=== PATIENT | male | born 1950 | race Caucasian/White ===

== ENCOUNTER 2021-07-09 11:37 | Inpatient (IN) ==
[2021-07-09] MEDS ORDERED: Ipratropium/Albuterol Neb 3 ML IH ONE (12:10)
[2021-07-09 12:39] LABS: Basophils % 0.7 %; Eosinophils # 0.2 K/mcL (0.0-0.6); Eosinophils % 3.7 %; Hematocrit 29.1 % (37.5-50.1); Hemoglobin 9.1 g/dL (12.9-16.9); Immature Granulocytes % 0.5 % (0-4); Lymphocytes # 1.1 K/mcL (0.6-4.6); Lymphocytes % 19.5 %; Mean Corpuscular HGB Conc 31.3 g/dL (31.6-35.5); Mean Corpuscular Hemoglobin 29.7 pg (28.0-33.3); Mean Corpuscular Volume 95.1 fL (83.0-100.0); Monocytes # 0.9 K/mcL (0.0-1.3); Neutrophils # 3.5 K/mcL (1.6-8.9); Platelet Count 239 K/mcL (140-400); Red Blood Count 3.06 M/mcL (4.19-5.50); Red Cell Distribution Width 15.9 % (11.5-14.5); Segmented Neutrophils % 60.6 %; White Blood Count 5.7 K/mcL (4.3-11.1)
[2021-07-09 12:39] LABS: ABG Base Excess 3 mEq/L (-2 to 3); ABG HCO3 27 mEq/L (21-27); ABG Oxygen Saturation 95 % (95-98); ABG PCO2 41 mmHg (35-45); ABG PH 7.43 pH Units (7.32-7.45); ABG PO2 76 mmHg (85-104); ABG TCO2 28 mEq/L (20-26)
[2021-07-09 12:48] LABS: INR 1.1; Prothrombin Time 12.2 Seconds (9.4-12.1)
[2021-07-09 12:58] LABS: Calcium 8.9 mg/dL (8.6-10.3); Potassium 3.9 mEq/L (3.5-5.1); Troponin I 0.03 ng/mL (< 0.04)
[2021-07-09] MEDS ORDERED: Azithromycin 500 MG in 0.9 % Sodium Chloride 250 ML IVPB ONE (13:03)
[2021-07-09] MEDS ORDERED: Ondansetron ODT 4 MG TAB.RAPDIS SL PRN (16:55)
[2021-07-09] MEDS ORDERED: Naloxone 0.4 MG/ML INJ IVP PRN (16:55)
[2021-07-09] MEDS ORDERED: Acetaminophen 325 MG TABLET PO PRN (16:55)
[2021-07-09] MEDS ORDERED: Ipratropium/Albuterol Neb 3 ML IH PRN (16:59)
[2021-07-09] MEDS ORDERED: D5% in Water 1,000 ML IVC PRN (17:40)
[2021-07-09] MEDS ORDERED: Dextrose Gel 15 GM/37.5 ML TUBE PO PRN ×2 (17:40)
[2021-07-09] MEDS ORDERED: *HR* Dextrose 50 % in Water (Syg) 50 ML SYRINGE IVP PRN (17:40)
[2021-07-09] MEDS: cloNIDine HCL 0.1 MG TABLET PO SCH (20:53)
[2021-07-09] MEDS: hydrALAZINE 25 MG TABLET PO SCH (20:55)
[2021-07-09] MEDS: Insulin LISPRO 300 UNITS/3 ML VIAL SUBQ SCH (20:55)
[2021-07-09] MEDS: Furosemide 20 MG/2 ML VIAL IVP SCH (20:55)
[2021-07-09] MEDS: Budesonide/Formoterol 160/4.5 1 PUFF INH IH SCH (23:24)
[2021-07-10] MEDS: Insulin LISPRO 300 UNITS/3 ML VIAL SUBQ SCH ×4 (07:55→19:45)
[2021-07-10] MEDS: hydrALAZINE 25 MG TABLET PO SCH ×3 (07:55→20:14)
[2021-07-10] MEDS: cloNIDine HCL 0.1 MG TABLET PO SCH ×2 (07:56→20:14)
[2021-07-10] MEDS: Furosemide 20 MG/2 ML VIAL IVP SCH ×2 (07:58→22:28)
[2021-07-10] MEDS: Fenofibrate 54 MG TABLET PO SCH (08:09)
[2021-07-10] MEDS: Cholecalciferol (D-3) 1,000 UNIT (25MCG) TABLET PO SCH (08:09)
[2021-07-10] MEDS: Vitamin B Complex/Vit C/Vit E 1 EACH TABLET PO SCH (08:10)
[2021-07-10] MEDS: Multivit/Ca/Min/Fe/FA 1 TAB TABLET PO SCH (08:10)
[2021-07-10] MEDS: amLODIPine 5 MG TABLET PO SCH (08:11)
[2021-07-10] MEDS: allopurinoL 100 MG TABLET PO SCH (08:11)
[2021-07-10] MEDS: Azithromycin 500 MG in 0.9 % Sodium Chloride 250 ML IVPB SCH (08:13)
[2021-07-10] MEDS: cefTRIAXone 2,000 MG in 0.9 % Sodium Chloride Mini Bag 100 ML IVPB SCH (08:13)
[2021-07-10 08:28] LABS: Albumin 3.3 g/dL (3.5-5.7); Albumin/Globulin Ratio 1.2 (1.1-2.2); Bilirubin,Total 0.4 mg/dL (0.3-1.0); Calcium 8.8 mg/dL (8.6-10.3); Globulin 2.7 g/dL (2.4-3.5); Potassium 4.2 mEq/L (3.5-5.1)
[2021-07-10] MEDS ORDERED: Famotidine 20 MG TABLET PO SCH (09:00)
[2021-07-10] MEDS ORDERED: DHA PO SCH (09:00)
[2021-07-10] MEDS ORDERED: FISH OIL PO SCH (09:00)
[2021-07-10] MEDS ORDERED: EPA PO SCH (09:00)
[2021-07-10] MEDS ORDERED: D3 PO SCH (09:00)
[2021-07-10] MEDS ORDERED: [UNRECOGNIZED DRUG - OTHER] PO SCH (09:00)
[2021-07-10] MEDS ORDERED: OMEGA PO SCH (09:00)
[2021-07-10] MEDS ORDERED: Patient Taking Own Medication 1 EACH PO SCH (09:00)
[2021-07-10 09:41] LABS: Hematocrit 29.3 % (37.5-50.1); Hemoglobin 8.9 g/dL (12.9-16.9); Immature Granulocytes % 0.6 % (0-4); Mean Corpuscular HGB Conc 30.4 g/dL (31.6-35.5); Mean Corpuscular Hemoglobin 29.4 pg (28.0-33.3); Mean Corpuscular Volume 96.7 fL (83.0-100.0); Mean Platelet Volume 10.9 fL (9.4-12.4); Neutrophils # 2.7 K/mcL (1.6-8.9); Platelet Count 250 K/mcL (140-400); Red Blood Count 3.03 M/mcL (4.19-5.50); Red Cell Distribution Width 15.7 % (11.5-14.5); Segmented Neutrophils % 52.6 %; White Blood Count 5.1 K/mcL (4.3-11.1)
[2021-07-10 09:42] LABS: Basophils % 0.6 %; Eosinophils # 0.2 K/mcL (0.0-0.6); Eosinophils % 4.1 %; Lymphocytes # 1.2 K/mcL (0.6-4.6); Lymphocytes % 23.4 %; Monocytes % 18.8 %
[2021-07-10] MEDS: Budesonide/Formoterol 160/4.5 1 PUFF INH IH SCH ×2 (10:36→22:04)
[2021-07-11] MEDS: cloNIDine HCL 0.1 MG TABLET PO SCH ×4 (02:49→20:44)
[2021-07-11] MEDS: hydrALAZINE 25 MG TABLET PO SCH ×3 (08:23→20:44)
[2021-07-11] MEDS: Fenofibrate 54 MG TABLET PO SCH (08:24)
[2021-07-11] MEDS: amLODIPine 5 MG TABLET PO SCH (08:25)
[2021-07-11] MEDS: Vitamin B Complex/Vit C/Vit E 1 EACH TABLET PO SCH (08:25)
[2021-07-11] MEDS: Cholecalciferol (D-3) 1,000 UNIT (25MCG) TABLET PO SCH (08:26)
[2021-07-11] MEDS: Multivit/Ca/Min/Fe/FA 1 TAB TABLET PO SCH (08:26)
[2021-07-11] MEDS: Furosemide 40 MG TABLET PO SCH (08:26)
[2021-07-11] MEDS: Famotidine 20 MG TABLET PO SCH (08:27)
[2021-07-11] MEDS: allopurinoL 100 MG TABLET PO SCH (08:27)
[2021-07-11] MEDS: Insulin LISPRO 300 UNITS/3 ML VIAL SUBQ SCH ×4 (08:28→20:38)
[2021-07-11] MEDS: Azithromycin 500 MG in 0.9 % Sodium Chloride 250 ML IVPB SCH (08:29)
[2021-07-11] MEDS: cefTRIAXone 2,000 MG in 0.9 % Sodium Chloride Mini Bag 100 ML IVPB SCH (08:29)
[2021-07-11 08:59] LABS: Basophils % 0.6 %; Eosinophils # 0.2 K/mcL (0.0-0.6); Eosinophils % 3.3 %; Hematocrit 27.5 % (37.5-50.1); Hemoglobin 8.5 g/dL (12.9-16.9); Immature Granulocytes % 0.4 % (0-4); Mean Corpuscular HGB Conc 30.9 g/dL (31.6-35.5); Mean Corpuscular Hemoglobin 29.7 pg (28.0-33.3); Mean Corpuscular Volume 96.2 fL (83.0-100.0); Mean Platelet Volume 10.3 fL (9.4-12.4); Monocytes # 0.9 K/mcL (0.0-1.3); Monocytes % 18.6 %; Neutrophils # 2.8 K/mcL (1.6-8.9); Platelet Count 219 K/mcL (140-400); Red Blood Count 2.86 M/mcL (4.19-5.50); Red Cell Distribution Width 15.6 % (11.5-14.5); Segmented Neutrophils % 57.1 %; White Blood Count 4.9 K/mcL (4.3-11.1)
[2021-07-11] MEDS: Budesonide/Formoterol 160/4.5 1 PUFF INH IH SCH ×2 (09:11→22:17)
[2021-07-11 09:33] LABS: Calcium 8.7 mg/dL (8.6-10.3); Magnesium 1.9 mg/dL (1.6-2.6)
[2021-07-11 09:58] LABS: Platelet Estimate Normal (Normal)
[2021-07-11] MEDS: MethylPREDNISolone 40 MG/ML VIAL IVP SCH (15:28)
[2021-07-12] MEDS: MethylPREDNISolone 40 MG/ML VIAL IVP SCH ×2 (00:26→07:59)
[2021-07-12 02:17] VITALS: TEMP 98.1
[2021-07-12] MEDS ORDERED: *HR* Labetalol 20 MG/4 ML SYRINGE IVP PRN (02:29)
[2021-07-12] MEDS ORDERED: *HR* Enoxaparin 40 MG/0.4 ML SYRINGE SQ SCH (06:00)
[2021-07-12] MEDS ORDERED: *HR* Heparin 5,000 UNIT/ML VIAL SQ SCH (06:00)
[2021-07-12 07:11] VITALS: BP 148/74; PULSE 84; RESP 18
[2021-07-12 07:27] LABS: Basophils % 0.3 %; Hematocrit 30.2 % (37.5-50.1); Hemoglobin 9.4 g/dL (12.9-16.9); Immature Granulocytes % 1.4 % (0-4); Lymphocytes # 0.6 K/mcL (0.6-4.6); Lymphocytes % 16.9 %; Mean Corpuscular HGB Conc 31.1 g/dL (31.6-35.5); Mean Corpuscular Hemoglobin 29.9 pg (28.0-33.3); Mean Corpuscular Volume 96.2 fL (83.0-100.0); Mean Platelet Volume 10.5 fL (9.4-12.4); Monocytes # 0.1 K/mcL (0.0-1.3); Monocytes % 3.6 %; Neutrophils # 2.8 K/mcL (1.6-8.9); Platelet Count 258 K/mcL (140-400); Red Blood Count 3.14 M/mcL (4.19-5.50); Red Cell Distribution Width 15.6 % (11.5-14.5); Segmented Neutrophils % 77.8 %; White Blood Count 3.6 K/mcL (4.3-11.1)
[2021-07-12 07:47] LABS: Calcium 9.3 mg/dL (8.6-10.3); Potassium 4.1 mEq/L (3.5-5.1)
[2021-07-12] MEDS: Insulin LISPRO 300 UNITS/3 ML VIAL SUBQ SCH ×2 (07:59→12:19)
[2021-07-12] MEDS: Vitamin B Complex/Vit C/Vit E 1 EACH TABLET PO SCH (08:00)
[2021-07-12] MEDS: cloNIDine HCL 0.1 MG TABLET PO SCH (08:00)
[2021-07-12] MEDS: Fenofibrate 54 MG TABLET PO SCH (08:00)
[2021-07-12] MEDS: amLODIPine 5 MG TABLET PO SCH (08:00)
[2021-07-12] MEDS: hydrALAZINE 25 MG TABLET PO SCH (08:01)
[2021-07-12] MEDS: Multivit/Ca/Min/Fe/FA 1 TAB TABLET PO SCH (08:01)
[2021-07-12] MEDS: Furosemide 40 MG TABLET PO SCH (08:02)
[2021-07-12] MEDS: Famotidine 20 MG TABLET PO SCH (08:02)
[2021-07-12] MEDS: allopurinoL 100 MG TABLET PO SCH (08:02)
[2021-07-12] MEDS: Azithromycin 500 MG in 0.9 % Sodium Chloride 250 ML IVPB SCH (08:03)
[2021-07-12] MEDS: Budesonide/Formoterol 160/4.5 1 PUFF INH IH SCH (09:01)
[2021-07-12] MEDS ORDERED: Benzonatate 100 MG CAPSULE PO PRN (09:36)
[2021-07-12 09:58] VITALS: O2SAT 94
[2021-07-12] MEDS: cefTRIAXone 2,000 MG in 0.9 % Sodium Chloride Mini Bag 100 ML IVPB SCH (10:21)
[2021-07-12] MEDS: Cholecalciferol (D-3) 1,000 UNIT (25MCG) TABLET PO SCH (10:23)
[2021-07-12] MEDS ORDERED: Furosemide 20 MG/2 ML VIAL IVP ONE (11:48)
[2021-07-12] MEDS ORDERED: MethylPREDNISolone 40 MG/ML VIAL IVP SCH (12:00)
[2021-07-12] MEDS ORDERED: Piperacillin/Tazobactam 3.375 GM in 0.9 % Sodium Chloride Mini Bag 100 ML IVPB SCH (12:00)
[2021-07-12 12:17] LABS: ABG Base Excess 2 mEq/L (-2 to 3); ABG HCO3 27 mEq/L (21-27); ABG Oxygen Saturation 87 % (95-98); ABG PCO2 44 mmHg (35-45); ABG PO2 54 mmHg (85-104); ABG TCO2 28 mEq/L (20-26)
[2021-07-12 14:19] LABS: Adenovirus Not Detected (Not Detect); Bordetella Pertussis Not Detected (Not Detect); Chlamydophila pneumoniae Not Detected (Not Detect); Coronavirus 229E Not Detected (Not Detect); Coronavirus HKU1 Not Detected (Not Detect); Coronavirus NL63 Not Detected (Not Detect); Coronavirus OC43 Not Detected (Not Detect); Human Metapneumovirus Not Detected (Not Detect); Human Rhinovirus/Enterovirus Not Detected (Not Detect); Influenza A Subtype 2009 H1 Not Detected (Not Detect); Influenza B Not Detected (Not Detect); Mycoplasma pneumoniae Not Detected (Not Detect); Parainfluenza Virus 1 Not Detected (Not Detect); Parainfluenza Virus 2 Not Detected (Not Detect); Parainfluenza Virus 3 Not Detected (Not Detect); Parainfluenza Virus 4 Not Detected (Not Detect); Respiratory Syncytial Virus Not Detected (Not Detect); SARS-CoV-2 Not Detected (Not Detect)
== END 2021-07-12 13:30 | disposition short-term general hospital (02) ==
LOC: EMEROOPIK 11:37 → INPPIK 11:37
PROVIDERS: ADMIT Internal Medicine; ATTEND Internal Medicine